=== PATIENT | female | born 1990 | race Caucasian/White ===

== ENCOUNTER → 2019-12-17 09:48 | Outpatient (CLI) | payer OTHER, SELFPAY ==
[2019-12-17 10:20] LABS: Add Manual Diff / Slide Review NO; Basophils Absolute Auto 0 /uL (0-100); Basophils Percent Auto 0.4 % (0-2); Eosinophils Absolute Auto 0 /uL (0-450); Eosinophils Percent Auto 0.4 % (2-4); Hematocrit 39.2 % (36-46); Hemoglobin 13.9 g/dL (12.0-16.0); Lymphocytes Absolute Auto 2200 /uL (1100-4500); Lymphocytes Percent Auto 29.5 % (25-40); Mean Corpuscular HGB Conc 35.4 % (30-36); Mean Corpuscular Hemoglobin 30.4 PG (26-34); Mean Corpuscular Volume 85.9 fL (80-100); Monocytes Absolute Auto 500 /uL (0-900); Monocytes Percent Auto 6.5 % (3-14); Neutrophils Absolute Auto 4800 /uL (1500-7000); Neutrophils Percent Auto 63.2 % (50-75); Platelet Count 264 X10^3/uL (150-400); Red Blood Cell Count 4.56 X10^6/uL (4.0-5.2); Red Cell Distribution Width 13.1 % (11.6-14.8); White Blood Cell Count 7.6 X10^3/uL (4.5-11.0)
[2019-12-17 11:10] LABS: Hepatitis B Surface Antigen NEGATIVE s/c (NEGATIVE)
[2019-12-17 11:26] LABS: HIV 1 & 2 Ab/Ag 4th Gen Combo NEGATIVE (NEGATIVE); Hep C Virus Ab w/Reflex Quant NEGATIVE s/c (NEGATIVE)
[2019-12-17 11:52] LABS: Appearance Urine UA CLEAR; Bilirubin Urine UA NEGATIVE (NEGATIVE); Color Urine UA YELLOW; Glucose Urine UA NEGATIVE (Negative); Ketones Urine UA NEGATIVE (NEGATIVE); Leukocyte Esterase Urine UA NEGATIVE (NEGATIVE); Nitrite Urine UA NEGATIVE (Negative); Occult Blood Urine UA 1+ (Negative); Protein Urine UA NEGATIVE (Negative); Specific Gravity Urine UA <=1.005 (1.000-1.035); Urobilinogen Urine UA 0.2 E.U./dL (0.2)
[2019-12-17 11:57] LABS: pH Urine UA 5.5 (4.5-8.0)
[2019-12-17 11:58] LABS: Bacteria Urine None Seen; WBC Urine None Seen (0-5/HPF)
[2019-12-17 11:59] LABS: RBC Urine 1-5/HPF (0-5/HPF)
[2019-12-18 03:07] LABS: RPR Screen Non Reactive (Non Reactive)
[2019-12-18 08:07] LABS: Varicella IgG Antibody <135 index (Immune >165)
== END ==
PROVIDERS: Referring Provider Specialist; Visit Provider Specialist
DX: Z34.01 Encounter for supervision of normal first pregnancy, first trimester (principal)
CPT/HCPCS: 36415; 80055; 81003; 81015; 86787; 86803; 86850; 86900; 86901; 87077; 87086; 87186; 87389

== ENCOUNTER → 2020-02-11 09:08 | Outpatient (CLI) | payer OTHER, SELFPAY ==
[2020-02-14 17:09] LABS: AFP, Serum 50.3 ng/mL (.); Calc Gestational Age Ultrasound (.); Estriol, Free 0.47 ng/mL (.); Inhibin A, MoM 4.18 (.); Maternal Ethnicity Caucasian (.); Maternal Weight 164 lbs (.); Number of Fetuses No (.); OSBR Risk 1 IN 3404 (.); Results Report (.); Test Results *Screen Positive* (.); hCG, MoM 4.08 (.); hCG, Serum 129020 mIU/mL (.)
== END ==
PROVIDERS: Referring Provider Specialist; Visit Provider Specialist
DX: Z34.82 Encounter for supervision of other normal pregnancy, second trimester (principal); Z3A.17 17 weeks gestation of pregnancy
CPT/HCPCS: 36415; 82105; 82677; 84702; 86336

== ENCOUNTER → 2020-04-06 09:43 | Outpatient (CLI) | payer OTHER, SELFPAY ==
[2020-04-06 12:43] LABS: Hematocrit 34.1 % (36-46); Hemoglobin 11.7 g/dL (12.0-16.0)
[2020-04-06 15:23] LABS: GTT (PREG) 1 Hour PP 50gm Dose 122 mg/dL (76-139)
== END ==
PROVIDERS: PCP Nurse Practitioner; Referring Provider Specialist; Visit Provider Specialist
DX: Z34.82 Encounter for supervision of other normal pregnancy, second trimester (principal)
CPT/HCPCS: 36415; 82950; 85014; 85018

== ENCOUNTER 2020-05-03 14:24 | Outpatient (CLI) | payer OTHER, SELFPAY ==
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
== END 2020-05-03 15:20 | disposition home or self-care (01) ==
LOC: LABOR 15:10 → OB 05-04 14:16
PROVIDERS: PCP Nurse Practitioner; Referring Provider Specialist; Visit Provider Specialist
DX: O36.5930 Maternal care for other known or suspected poor fetal growth, third trimester, not applicable or unspecified (principal); Z3A.28 28 weeks gestation of pregnancy
CPT/HCPCS: 59025; G0378; G0379

== ENCOUNTER 2020-05-10 14:03 | Outpatient (CLI) | payer OTHER, SELFPAY ==
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
== END 2020-05-10 14:48 | disposition home or self-care (01) ==
LOC: LABOR 14:48 → OB 05-11 15:02
PROVIDERS: PCP Nurse Practitioner; Referring Provider Specialist; Visit Provider Specialist
DX: O36.5930 Maternal care for other known or suspected poor fetal growth, third trimester, not applicable or unspecified (principal); Z3A.29 29 weeks gestation of pregnancy
CPT/HCPCS: 59025; G0378; G0379

== ENCOUNTER 2020-05-17 14:04 | Outpatient (CLI) | payer OTHER, SELFPAY ==
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
== END 2020-05-17 15:15 | disposition home or self-care (01) ==
LOC: LABOR 15:15 → OB 05-18 06:58
PROVIDERS: PCP Nurse Practitioner; Referring Provider Specialist; Visit Provider Specialist
DX: O41.03X0 Oligohydramnios, third trimester, not applicable or unspecified (principal); O36.5930 Maternal care for other known or suspected poor fetal growth, third trimester, not applicable or unspecified; Z3A.30 30 weeks gestation of pregnancy
CPT/HCPCS: 59025; G0378; G0379

== ENCOUNTER 2020-05-24 14:03 | Outpatient (CLI) | payer OTHER, SELFPAY ==
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
== END 2020-05-24 14:35 | disposition home or self-care (01) ==
LOC: OB 05-26 14:56
PROVIDERS: PCP Nurse Practitioner; Referring Provider Specialist; Visit Provider Specialist
DX: O36.5930 Maternal care for other known or suspected poor fetal growth, third trimester, not applicable or unspecified (principal); O41.03X0 Oligohydramnios, third trimester, not applicable or unspecified; Z3A.32 32 weeks gestation of pregnancy
CPT/HCPCS: 59025; G0378; G0379

== ENCOUNTER 2020-05-31 13:58 | Outpatient (CLI) | payer OTHER, SELFPAY ==
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
== END 2020-05-31 14:55 | disposition home or self-care (01) ==
LOC: LABOR 14:40 → OB 06-01 11:02
PROVIDERS: PCP Nurse Practitioner; Referring Provider Specialist; Visit Provider Specialist
DX: O36.5930 Maternal care for other known or suspected poor fetal growth, third trimester, not applicable or unspecified (principal); O41.03X0 Oligohydramnios, third trimester, not applicable or unspecified; Z3A.32 32 weeks gestation of pregnancy
CPT/HCPCS: 59025; G0378; G0379

== ENCOUNTER 2020-06-07 15:52 | Outpatient (CLI) | payer OTHER, SELFPAY ==
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
[2020-06-07 16:54] LABS: Add Manual Diff / Slide Review NO; Basophils Absolute Auto 0 /uL (0-100); Basophils Percent Auto 0.3 % (0-2); Eosinophils Absolute Auto 0 /uL (0-450); Eosinophils Percent Auto 0.5 % (2-4); Hematocrit 39.7 % (36-46); Hemoglobin 13.5 g/dL (12.0-16.0); Lymphocytes Absolute Auto 2200 /uL (1100-4500); Lymphocytes Percent Auto 26.1 % (25-40); Mean Corpuscular HGB Conc 33.9 % (30-36); Mean Corpuscular Hemoglobin 29.3 PG (26-34); Mean Corpuscular Volume 86.3 fL (80-100); Monocytes Absolute Auto 600 /uL (0-900); Monocytes Percent Auto 7.5 % (3-14); Neutrophils Absolute Auto 5600 /uL (1500-7000); Neutrophils Percent Auto 65.6 % (50-75); Platelet Count 215 X10^3/uL (150-400); Red Cell Distribution Width 14.1 % (11.6-14.8); White Blood Cell Count 8.5 X10^3/uL (4.5-11.0)
[2020-06-07 17:05] LABS: Aspartate Aminotransferase 23 IU/L (14-36); BUN Creatinine Ratio 17.9 (6-22); Blood Urea Nitrogen 10 mg/dL (7-17); Estimated Glomerular Filt Rate > 60.0 mL/min (>60); Uric Acid 3.7 mg/dL (2.5-6.2)
[2020-06-07 17:29] LABS: Bacteria Urine None Seen; RBC Urine None Seen (0-5/HPF); WBC Urine None Seen (0-5/HPF)
[2020-06-07 17:35] LABS: Appearance Urine UA CLEAR; Bilirubin Urine UA NEGATIVE (NEGATIVE); Color Urine UA YELLOW; Glucose Urine UA NEGATIVE (Negative); Ketones Urine UA NEGATIVE (NEGATIVE); Leukocyte Esterase Urine UA NEGATIVE (NEGATIVE); Nitrite Urine UA NEGATIVE (Negative); Occult Blood Urine UA TRACE-LYSED (Negative); Protein Urine UA NEGATIVE (Negative); Specific Gravity Urine UA <=1.005 (1.000-1.035); Urobilinogen Urine UA 0.2 E.U./dL (0.2)
[2020-06-07 17:38] LABS: Creatinine Urine Random 10.5 mg/dL; Culture Indicated Urine Cult Not Indicated; Protein (Total) Urine Random 14 mg/dL (0-12); Protein Creatinine Ratio Urine 1.33 GRAM/24H; pH Urine UA 6.5 (4.5-8.0)
== END 2020-06-07 17:24 | disposition home or self-care (01) ==
LOC: LABOR 16:53 → OB 06-08 11:08
PROVIDERS: Obstetrics & Gynecology; PCP Nurse Practitioner; Referring Provider Specialist; Visit Provider Specialist
DX: O41.03X0 Oligohydramnios, third trimester, not applicable or unspecified (principal); Z3A.33 33 weeks gestation of pregnancy
CPT/HCPCS: 36415; 59025; 81001; 82570; 84156; 84450; 84550; 85025; G0378; G0379

== ENCOUNTER → 2020-06-10 11:32 | Outpatient (CLI) | payer OTHER, SELFPAY ==
[2020-06-10 14:41] LABS: Collection Time Urine 24 Hours; Protein (Total) Urine Random 15 mg/dL (0-12); Total Protein 24 Hour Urine 450 mg/day (42-225); Total Volume Urine 3000 mL
== END ==
PROVIDERS: PCP Nurse Practitioner; Referring Provider Obstetrics & Gynecology; Visit Provider Obstetrics & Gynecology
DX: O16.9 Unspecified maternal hypertension, unspecified trimester (principal); R80.9 Proteinuria, unspecified
CPT/HCPCS: 84156

== ENCOUNTER 2020-06-14 13:41 | Outpatient (CLI) | payer OTHER, SELFPAY ==
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
== END 2020-06-14 14:20 | disposition home or self-care (01) ==
LOC: OB 06-16 08:26
PROVIDERS: PCP Nurse Practitioner; Referring Provider Specialist; Visit Provider Specialist
DX: O36.5930 Maternal care for other known or suspected poor fetal growth, third trimester, not applicable or unspecified (principal); O41.03X0 Oligohydramnios, third trimester, not applicable or unspecified; Z3A.34 34 weeks gestation of pregnancy
CPT/HCPCS: 59025; G0378; G0379

== ENCOUNTER 2020-06-21 13:58 | Outpatient (CLI) | payer OTHER, SELFPAY ==
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
== END 2020-06-21 15:50 | disposition home or self-care (01) ==
LOC: LABOR 15:09 → OB 06-22 16:50
PROVIDERS: PCP Nurse Practitioner; Referring Provider Specialist; Visit Provider Specialist
DX: O36.5930 Maternal care for other known or suspected poor fetal growth, third trimester, not applicable or unspecified (principal); O41.03X0 Oligohydramnios, third trimester, not applicable or unspecified; Z3A.35 35 weeks gestation of pregnancy
CPT/HCPCS: 59025; 59050; G0378; G0379